=== PATIENT | male | born 1950 | race Caucasian/White ===

== ENCOUNTER 2020-12-16 15:03 | Emergency (ER) | payer MEDICARE, OTHER ==
--- NOTE | 2020-12-16 16:16 | EDM.PDOC ---
ED HPI GENERAL MEDICAL PROBLEM - General Chief Complaint: Neurological Problem Stated Complaint: MEMORY LOSS Time Seen by Provider: 12/16/20 15:40 Source of Information: Reports: Patient, Family History Limitations: Reports: Altered Mental Status (Memory loss) - History of Present Illness INITIAL COMMENTS - FREE TEXT/NARRATIVE: 70-year-old male was out working in his garage, was up on a ladder doing something by himself, when his noticed he was walking down the driveway. She went out and asked him if he wanted to walk up to the mailbox to get the mail and he said yes, but after they started walking he started asking strange questions like where are we going, seemed confused, and was asking repetitive questions. She started quizzing him and found he had some long-term memory loss issues and definite short-term memory loss. She also noticed that his back was covered with leaves and grass and he was not working on the ground. He had no headache, visual complaints, speech deficits, weakness, paresthesias, back or neck pain. When his symptoms persisted she brought him to the emergency room. Onset: Unknown/Unsure Duration: Hour(s): (Last known well was 3 hours ago) Associated Symptoms: Reports: No Other Symptoms - Related Data Allergies Allergy/AdvReac Type Severity Reaction Status Date / Time No Known Allergies Allergy Verified 12/16/20 15:43 Home Meds: Home Meds Finasteride 5 mg PO DAILY 12/16/20 [History] Tamsulosin [Tamsulosin 24 Hr] 0.4 mg PO DAILY 12/16/20 [History] Past Medical History Genitourinary History: Reports: Prostate Disorder - Infectious Disease History Infectious Disease History: Reports: Chicken Pox, Measles - Past Surgical History Other Musculoskeletal Surgeries/Procedures:: back surgery Social & Family History - Tobacco Use Tobacco Use Status *Q: Never Tobacco User - Caffeine Use Caffeine Use: Reports: Coffee - Recreational Drug Use Recreational Drug Use: No ED ROS GENERAL - Review of Systems Review Of Systems: See Below Constitutional: Denies: Fever, Chills HEENT: Denies: Vision Change Respiratory: Denies: Shortness of Breath Cardiovascular: Denies: Chest Pain, Palpitations Endocrine: Denies: Fatigue GI/Abdominal: Denies: Nausea, Vomiting : Reports: No Symptoms Musculoskeletal: Denies: Neck Pain, Back Pain Skin: Reports: No Symptoms Neurological: Reports: Confusion, Other (Amnesia and memory loss as mentioned). Denies: Headache - Physical Exam Exam: See Below Exam Limited By: No Limitations General Appearance: Alert, No Apparent Distress Eye Exam: Bilateral Eye: Normal Inspection Ears: Normal External Exam, Normal TMs Throat/Mouth: Normal Inspection Head Exam: Other (Patient does have some slight redness on the occiput of the scalp but no abrasion, hematoma or tenderness) Neck: Supple, Non-Tender Respiratory/Chest: Lungs Clear Cardiovascular: Regular Rate, Rhythm GI/Abdominal: Soft, Non-Tender Neuro Exam (Abbreviated): Alert, Oriented, No Motor/Sensory Deficits Back Exam: Normal Inspection. No: Vertebral Tenderness Extremities: Normal Inspection, No Pedal Edema Psychiatric: Flat Affect Skin Exam: Warm, Dry, Other (Slight erythema on the occiput of the scalp, otherwise normal) Course - Vital Signs Last Recorded V/S: Last Vital Signs Temp 97.7 F 12/16/20 15:54 Pulse 58 L 12/16/20 15:54 Resp 16 12/16/20 15:54 BP 135/92 H 12/16/20 15:54 Pulse Ox 95 12/16/20 15:54 - Re-Assessments/Exams Free Text/Narrative Re-Assessment/Exam: 12/16/20 16:15 This patient may have suffered a closed head injury and concussion, CT of the head without contrast will be obtained. He is not on anticoagulants. 12/16/20 16:40 IMPRESSION: No acute intracranial abnormalities including no evidence of acute intracranial trauma. Departure - Departure Time of Disposition: 17:16 Disposition: Home, Self-Care 01 Clinical Impression: Concussion Qualifiers: Encounter type: initial encounter - Discharge Information Instructions: Concussion, Adult, [id number] Referrals: Shane vasquez MD [Primary Care Provider] - Forms: ED Department Discharge Care Plan Goals: Increase activity as tolerated, stay off ladders or avoid strenuous physical activity until you are comfortable you have no lingering symptoms such as dizziness, light or sound sensitivity or headache. Return anytime if worsening or concerns. Consider rechecking next week if not feeling back to 100% baseline. It is very possible you will always have some memory loss of the event. Sepsis Event Note (ED) - Evaluation Sepsis Screening Result: No Definite Risk
--- NOTE | 2020-12-16 16:40 | CRLCT ---
INDICATION: Memory loss, possible head injury TECHNIQUE: CT head without contrast. COMPARISON: FINDINGS: CSF spaces: Within normal limits for age. Brain parenchyma: The hirsch-white differentiation is normal. No sign of mass, hemorrhage, or midline shift. Skull base and calvarium: The visualized paranasal sinuses and mastoid air cells demonstrate no acute or significant findings. The visualized orbits are grossly unremarkable. No skull fractures. IMPRESSION: No acute intracranial abnormalities including no evidence of acute intracranial trauma. Dictated by Shane Rubalcava MD @ 12/16/2020 4:39:34 PM Please note that all CT scans at this facility use dose modulation, iterative reconstruction, and/or weight-based dosing when appropriate to reduce radiation dose to as low as reasonably achievable. Dictated by: Shane Rubalcava MD @ 12/16/2020 16:39:39 (Electronically Signed)
== END 2020-12-16 17:16 | disposition home or self-care (01) ==
LOC: JP.ED 15:03
DX: S06.0X9A Concussion with loss of consciousness of unspecified duration, initial encounter (principal); N42.9 Disorder of prostate, unspecified; Z79.899 Other long term (current) drug therapy; X58.XXXA Exposure to other specified factors, initial encounter
CPT/HCPCS: 70450; 99283; 99285-25